=== PATIENT | female | born 1950 ===

== ENCOUNTER 2016-11-18 13:56 | Inpatient (IN) | payer OTHER ==
[2016-11-18 15:23] VITALS: BMI 23.6
[2016-11-19] MEDS: Insulin Lispro (humaLOG) 100 Units/ml Inj SC SCH ×4 (06:50→21:38)
[2016-11-19 07:25] LABS: HEMATOCRIT 34.5 % (34.0-47.0); MEAN CELL VOLUME 81.1 fl (81.0-99.0); MEAN CORPUSCULAR HGB CONC 33.3 g/dL (33.0-37.0); RED CELL DISTRIBUTION WIDTH 14.2 % (11.5-14.5)
[2016-11-19 07:45] LABS: CALCIUM 9.3 mg/dL (8.4-10.2); POTASSIUM 4.3 MMOL/L (3.6-5.0)
[2016-11-19] MEDS: Enoxaparin 40 mg Syringe SC SCH (08:31)
--- NOTE | 2016-11-19 12:35 | CP.PCM.HP ---
<Denise Chong - Last Filed: 11/19/16 12:26> History of Present Illness - History of Present Illness History of Present Illness: 66 y/o F with PMHx of HTN, Hyperlipidemia, Stroke ( as per patient was in 2002 in [place]), and recent Ischemic CVA who was transferred yesterday from [facility] to [facility] acute rehabilitation unit by Dr. Chahal for evaluation and rehabilitation. Patient seen and examined with attending this morning. Case discussed with Dr. Falk and agrees with the plan Patient denies chest pain, SOB, N/V, headaches, dizziness, but with right inferior facial and right sided weakness. Present on Admission - Present on Admission Any Indicators Present on Admission: No History of DVT/PE: No History of Uncontrolled Diabetes: No Urinary Catheter: No Decubitus Ulcer Present: No Review of Systems - Review of Systems All systems: reviewed and no additional remarkable complaints except (as per HPI ) Past Patient History - Past Medical History & Family History Past Medical History?: Yes - Past Social History Smoking Status: Never Smoked - CARDIAC Hx Hypercholesterolemia: Yes Hx Hypertension: Yes - NEUROLOGICAL HX Cerebrovascular Accident: Yes (h/o 2 CVA's with residual right side weakness) Other/Comment: h/o CVA 2002 - HEENT Hx HEENT Problems: Yes Other/Comment: RT EYE PROSTHESIS - ENDOCRINE/METABOLIC Hx Endocrine Disorders: Yes Hx Diabetes Mellitus Type 2: Yes - HEMATOLOGICAL/ONCOLOGICAL Hx AIDS: No Hx Blood Transfusions: No Hx Human Immunodeficiency Virus (HIV): No - MUSCULOSKELETAL/RHEUMATOLOGICAL Hx Falls: No - GASTROINTESTINAL Hx Constipation: Yes - PSYCHIATRIC Hx Substance Use: No - SURGICAL HISTORY Hx Surgeries: Yes Other/Comment: RT EYE SX, with right eye prosthesis - ANESTHESIA Hx Anesthesia: Yes Hx Anesthesia Reactions: No Hx Malignant Hyperthermia: No Has any member of the family had a problem w/ anesthesia?: No Meds Allergies/Adverse Reactions: Allergies Allergy/AdvReac Type Severity Reaction Status Date / Time No Known Allergies Allergy Verified 11/18/16 21:00 Physical Exam - Constitutional Appears: No Acute Distress - ENT Exam ENT Exam: Mucous Membranes Moist - Respiratory Exam Respiratory Exam: Clear to Auscultation Bilateral, NORMAL BREATHING PATTERN - Cardiovascular Exam Cardiovascular Exam: REGULAR RHYTHM, +S1, +S2 - GI/Abdominal Exam GI & Abdominal Exam: Normal Bowel Sounds, Soft. absent: Distended, Firm, Guarding, Tenderness - Extremities Exam Extremities exam: Positive for: normal inspection. Negative for: calf tenderness, pedal edema - Neurological Exam Neurological exam: Alert, Motor Sensory Deficit (decreased strength 4/5 on right upper/lower extremities. Tongue deviation to the right. ), Oriented x3 Additional comments: inferior right facial palsy noted Results - Vital Signs Recent Vital Signs: Last Vital Signs Temp 97.9 F 11/19/16 09:55 Pulse 72 11/19/16 11:14 Resp 20 11/19/16 09:55 BP 153/59 H 11/19/16 08:31 Pulse Ox 97 11/18/16 22:53 - Labs Result Diagrams: 11/19/16 06:20 11/19/16 06:20 Labs: Laboratory Results - last 24 hr 11/18/16 11/19/16 11/19/16 22:27 05:37 06:20 WBC 11.0 H RBC 4.25 Hgb 11.5 L Hct 34.5 MCV 81.1 MCH 27.0 MCHC 33.3 RDW 14.2 Plt Count 341 Sodium Potassium Chloride Carbon Dioxide Anion Gap BUN Creatinine Est GFR ( Amer) Est GFR (Non-Af Amer) POC Glucose (mg/dL) 206 H 156 H Random Glucose Calcium 11/19/16 11/19/16 06:20 11:49 WBC RBC Hgb Hct MCV MCH MCHC RDW Plt Count Sodium 139 Potassium 4.3 Chloride 102 Carbon Dioxide 25 Anion Gap 17 BUN 20 H Creatinine 1.4 H Est GFR ( Amer) 45 Est GFR (Non-Af Amer) 38 POC Glucose (mg/dL) 254 H Random Glucose 139 H Calcium 9.3 Assessment & Plan - Assessment and Plan (Free Text) Assessment: Ischemic CVA -admit to acute rehabilitation -c/w aspirin and clopidogrel PO daily -c/w atorvastatin PO PT/OT evaluation and treatment aspiration precautions fall precautions HTN c/w current meds DM type 2 f/u HgbA1C c/w accucheck consider dose adjustment for better BSL control Hyperlipidemia c/w atorvastatin DVT prophylaxis c/w lovenox SC - Date & Time Date: 11/19/16 Time: 10:00 <Stevie Falk - Last Filed: 11/22/16 11:40> Results - Vital Signs Recent Vital Signs: Last Vital Signs Temp 98.1 F 11/22/16 08:00 Pulse 61 11/22/16 08:05 Resp 20 11/22/16 08:00 BP 158/68 H 11/22/16 08:05 Pulse Ox 97 11/22/16 08:00 - Labs Result Diagrams: 11/22/16 06:56 11/19/16 06:20 Labs: Laboratory Results - last 24 hr 11/21/16 11/21/16 11/22/16 16:01 21:04 05:48 WBC RBC Hgb Hct MCV MCH MCHC RDW Plt Count POC Glucose (mg/dL) 129 H 103 118 H 11/22/16 11/22/16 06:56 11:05 WBC 10.7 RBC 4.23 Hgb 11.3 L Hct 34.7 MCV 82.0 MCH 26.6 L MCHC 32.4 L RDW 14.0 Plt Count 357 POC Glucose (mg/dL) 153 H Assessment & Plan (1) CVA, old, dysarthria Status: Acute (2) Slurring of speech Status: Acute (3) Diabetes mellitus Status: Chronic Priority: Medium (4) Hyperlipidemia Status: Chronic Priority: High (5) Hypertension Status: Chronic Priority: Medium - Assessment and Plan (Free Text) Plan: I was present during evaluation and discussed with Dr Arlette ceja plans of care and tx.
--- NOTE | 2016-11-19 13:26 | CP.PCM.PN ---
Subjective - Date & Time of Evaluation Date of Evaluation: 11/19/16 Time of Evaluation: 13:00 - Subjective Subjective: no acute complaints at present Objective - Vital Signs/Intake and Output Vital Signs (last 24 hours): Temp Pulse Resp BP Pulse Ox 97.9 F 72 20 153/59 H 97 11/19/16 09:55 11/19/16 11:14 11/19/16 09:55 11/19/16 08:31 11/18/16 22:53 - Medications Medications: Current Medications Amlodipine Besylate (Norvasc) 10 mg PO DAILY [facility] Last Admin: 11/19/16 08:31 Dose: 10 mg Aspirin (Ecotrin) 81 mg PO DAILY [facility] Last Admin: 11/19/16 08:31 Dose: 81 mg Atorvastatin Calcium (Lipitor) 40 mg PO HS [facility] Bisacodyl (Dulcolax) 10 mg [place] DAILY PRN PRN Reason: Constipation Clopidogrel Bisulfate (Plavix) 75 mg PO DAILY [facility] Last Admin: 11/19/16 08:31 Dose: 75 mg Docusate Sodium (Colace) 100 mg PO BID [facility] Last Admin: 11/19/16 08:31 Dose: 100 mg Enoxaparin Sodium (Lovenox) 40 mg [place] DAILY [facility] PRN Reason: Protocol Last Admin: 11/19/16 08:31 Dose: 40 mg Glipizide (Glucotrol Xl) 5 mg PO BRK [facility] Insulin Detemir (Levemir) 12 units SC HS [facility] Insulin Human Lispro (Humalog) 0 units [place] ACHS [facility] PRN Reason: Protocol Last Admin: 11/19/16 12:46 Dose: 3 units Losartan Potassium (Cozaar) 50 mg PO DAILY [facility] Last Admin: 11/19/16 08:29 Dose: 50 mg Metformin HCl (Glucophage) 500 mg PO BID [facility] Sitagliptin Phosphate (Januvia) 50 mg PO DAILY [facility] - Labs Labs: 11/19/16 06:20 11/19/16 06:20 - Head Exam Head Exam: ATRAUMATIC, NORMAL INSPECTION, NORMOCEPHALIC - Eye Exam Eye Exam: EOMI, Normal appearance, PERRL Pupil Exam: NORMAL ACCOMODATION - ENT Exam ENT Exam: Mucous Membranes Moist, Normal Exam - Respiratory Exam Respiratory Exam: NORMAL BREATHING PATTERN - Cardiovascular Exam Cardiovascular Exam: REGULAR RHYTHM - GI/Abdominal Exam GI & Abdominal Exam: Soft, Normal Bowel Sounds - Exam External exam: NORMAL EXTERNAL EXAM - Extremities Exam Extremities Exam: Normal Capillary Refill - Back Exam Back Exam: NORMAL INSPECTION - Neurological Exam Neurological Exam: Alert, Awake Neuro motor strength exam: Left Upper Extremity: 3, Right Upper Extremity: 3, Left Lower Extremity: 3, Right Lower Extremity: 3 - Psychiatric Exam Psychiatric exam: Normal Affect, Normal Mood - Skin Skin Exam: Dry, Intact Assessment and Plan (1) CVA, old, dysarthria Assessment & Plan: plan for pt, ot , rec and speech for oerall plan of care Status: Acute (2) Contusion Status: Acute (3) Ischemic stroke Status: Acute (4) Slurring of speech Status: Acute (5) Toothache Status: Acute (6) Diabetes mellitus Status: Chronic (7) Hyperlipidemia Status: Chronic (8) Hypertension Status: Chronic Physiatry Overall Plan of Care - Overall Plan of Care Estimated Length of Stay in Weeks: 2 Rehab Impairment: Mobility, Gait, Cognition, Speech, Balance, Coordination Etiologic Diagnosis: Cerebrovascular Accident - Anticipated Interventions Physical Therapy:: Yes Occupational Therapy:: Yes Speech Therapy:: Yes Recreational Therapy:: Yes Other Anticipated Intervention:: Yes - Therapy Goals Bed Mobility: Independent Ambulation: Independent Functional Positional Changes:: Independent - Discharge Plan Discharge Destination: Home
--- NOTE | 2016-11-19 21:18 | CON ---
DATE: PHYSIATRY CONSULTATION HISTORY OF PRESENT ILLNESS: The patient is at [facility]. A 66-year-old female, in no acute distress, admitted with acute CVA, ICD code of 01.9 with other history of hypertension, diabetes, dysarthria, dysphagia, and right eye prosthesis. ALLERGIES: NO KNOWN ALLERGIES. SOCIAL HISTORY: No history of drinking. No history of smoking. FAMILY HISTORY: Noncontributory. FUNCTIONAL STATUS: The patient was independent previously with a cane needed, some assistance provided with home health aide. MEDICATIONS: As per medical physician. REVIEW OF SYSTEMS: The patient is alert, no acute complaints at present. Mild weakness on the right side. PHYSICAL EXAMINATION: VITAL SIGNS: Stable. NECK: Supple. CHEST: Symmetrical. HEART: Sounds S1 and S2. ABDOMEN: Benign. EXTREMITIES: No clubbing, cyanosis or edema. Right upper and right lower extremity; Tone normal range of motion as functional. Muscle strength is 3/5. Left upper and left lower extremity. Tone normal range of motion as functional. Muscle strength is good. Sensation to pinprick, light touch intact. Deep tendon reflexes 2+ bilaterally, other systems are negative. NEUROLOGICAL: The patient is alert, able to follow commands. Cranial nerves being assess IX and X; otherwise the rest of the cranial nerves II and XII grossly intact. IMPRESSION: For the patient acute ischemic cerebrovascular accident, ICD code of 01.9, history of hypertension, diabetes, dysarthria, dysphagia, and right eye prosthesis. PLAN: For physical therapy, occupational therapy, recreational therapy, speech therapy. Goals are for modified independence to supervision. Estimated length of stay for this patient is 2 to 3 weeks. Anticipate a discharge plan is go back to live at home with supportive services, treatment plan for PT and OT, recreational and speech. Also write for overall plan of care. Oliver Bhatti MD
[2016-11-19] MEDS: Insulin Detemir 100 Units/ml Inj SC SCH (21:37)
[2016-11-19] MEDS ORDERED: INSULIN GLARGINE RECOMBINA SC SCH (22:00)
[2016-11-20] MEDS: Insulin Lispro (humaLOG) 100 Units/ml Inj SC SCH ×4 (07:06→21:11)
[2016-11-20] MEDS: GlipiZIDE 5 mg SR Tab PO SCH (09:00)
[2016-11-20] MEDS: Enoxaparin 40 mg Syringe SC SCH (09:11)
--- NOTE | 2016-11-20 12:10 | PSY.TMCNF ---
Nursing - Vital Signs Vital Signs (Last 8 hours): Vital Signs 11/20/16 11/20/16 11/20/16 08:24 09:00 09:12 Temperature 97.6 F Pulse Rate 75 75 Respiratory 20 20 Rate Blood Pressure 173/75 H 173/75 H 173/75 H Pain: 0 - Precautions: Precautions: Fall Prevention - Medications/Other Issues Comment: To follow as per nutrition protocol - Consults Comment: Dr. Bhatti - Toileting Toileting: Dependent - Bladder Management Bladder Pattern: Normal Voiding Method: Toilet, Bedpan Bladder Management: Maximal Assistance Frequency of Accidents: 0 - Bowel Management Bowel Pattern: Constipated Bowel Management: Dependent Frequency of Accidents: 0 - Transfers Transfers: Minimal Assistance - ADL's ADL's: Maximal Assistance - Patient/Family Teaching Comments: CARE POST CVA AND SAFETY PRECAUTIONS - Goals/Time Frame Comments: Pt was seen awake and alert sitting in her wheelchair in her room. Pt agreeable to visit. [employer] translation utilized, Alejandra #[id number]. Pt was able to identify her leisure interests such as watching movies, going outside, shopping, and watching television. Pt reported her leisure activities are limited 2' visual deficits in R eye as pt has a R eye prosthesis. Pt reports she lives with her granddaughter and is on disability. Pt agreeable to participate in recreation therapy sessions throughout stay. - Provider Provider: MAYA VERDUZCON RN CRRN Physical Therapy - Bed Mobility Bed Mobility: Minimal Assistance - Transfers Wheelchair to Mat: Verbal Cues, Minimal Assistance Sit to Stand: Verbal Cues, Minimal Assistance - Ambulation Level of Assistance: Verbal Cues, Minimal Assistance Distance (ft.): 50 Assistive Devices: Rolling Walker - Stair Negotiation Stairs: Level of Assistance: Verbal Cues, Minimal Assistance Number of Stairs: 3 Handrails: Bilateral Stairs: Assistive Devices: Left Handrail, Right Handrail - Standing Balance Static Stand: Contact Guard Assist Dynamic Stand: Minimal Assistance, Moderate Assistance - Pain Pain (assessed during therapy session): 0 - Insight/Carryover Insight/Carryover: Good - Patient/Family Education Comment: Pt education for increased safety awareness and proper technique during functonal mobility training - Assessment/Plan Assessment: Pt was oriented to the benefits of participating in recreation therapy sessions throughout stay on unit. Pt expressed interest in participating in sessions. Pt will benefit from recreation therapy to improve leisure awareness level, attention to task, and direction following. - Goals Goals: Transfers with CGA. LB dressing with CGA. Bathing with Jerome - Provider License Number: [id number] Occupational Therapy - Arousal/Attention/Orientation Patient Orientation: Person, Place, Time, Appropriate to Age, Appropriate to Situation - ADL/IADL Self Feeding: Supervision, Set-up Help Grooming: Supervision, Verbal Cues, Set-up Help Dressing-Upper Extremity: Supervision, Verbal Cues, Set-up Help Dressing-Lower Extremity: Minimal Assistance - Sitting Balance Static Sitting: Supervision Dynamic Sitting: Requires supervision - Transfers Wheelchair to Bed Transfers: Minimal Assistance Toilet Transfers: Minimal Assistance - Wheelchair Management Level of Assistance: Not Applicable - Pain Pain (assessed during therapy session): 0 - Insight/Carryover Insight/Carryover: Good - Patient/Family Education Comment: Pt education for increased safety awareness and proper technique during functonal mobility training - Assessment/Plan Assessment: Pt was oriented to the benefits of participating in recreation therapy sessions throughout stay on unit. Pt expressed interest in participating in sessions. Pt will benefit from recreation therapy to improve leisure awareness level, attention to task, and direction following. - Goals Goals: Transfers with CGA. LB dressing with CGA. Bathing with Jerome - Provider Therapist: Zahida CADENA/[facility] Speech [facility] - Consult Information Patient on Program: Yes Medical Diagnosis: acute ischemic CVA Treatment Diagnosis: cognitive-linguistic disorder, dysarthria, dysphagia - Assessment Problem Solving Impairment: Moderate Memory Impairment: Mild Speech/Articulation Impairment: Mild Dysphagia/Swallowing Impairment: Moderate - Plan Assessment: Pt was oriented to the benefits of participating in recreation therapy sessions throughout stay on unit. Pt expressed interest in participating in sessions. Pt will benefit from recreation therapy to improve leisure awareness level, attention to task, and direction following. - Provider Therapist: Eleanor Tipton License Number: [id number] Recreational Therapy - Participation Participation: Participates in Individual and/or Group Sessions, Monitors His/ Her Own Leisure Time - Attendance Attendance: Daily - Activities Leisure Activities: Television - Socialization Level of Socialization: Initiates/interacts freely with care givers and peer, Minimal initiation of interaction to request basic needs, Minimal or no response - Assessment Assessment/Plan: Pt was oriented to the benefits of participating in recreation therapy sessions throughout stay on unit. Pt expressed interest in participating in sessions. Pt will benefit from recreation therapy to improve leisure awareness level, attention to task, and direction following. Problems Currently Limiting Participation: R side weakness, decrease leisure awareness level, R eye visual deficits Goals and Time Frame: Pt will be encouraged to participate on 1:1 and group recreation therapy sessions to improve leisure awareness level, attention to task, and direction following. - Provider Therapist: Kriss Prakash, MAINTENANCE CUSTODIAN #[id number] Nutrition - Current Diet Current Diet/ Supplement/ Feedings: Moderate consistent CHO 2 gram Na advanced bite size nectar thick liquid. diet - Appetite Percent Meal Consumed: 50-74% - Comments Comments: CARE POST CVA AND SAFETY PRECAUTIONS - Assessment/Goals/Time Frame Assessment/Goals/Time Frame: To follow as per nutrition protocol - Provider Provider: Lilliana Hilliard RD Case Management - Discharge Plan Discharge Plan: Home with significant other/family Rehabilitation Plan - Treatment Plan Treatment Plan: Physical Therapy, Occupational Therapy, Speech, Dietary, Patient /Family Education - Recommendation Recommendation: Physical Therapy, Occupational Therapy, Speech, Patient/Family Education - Discharge Plan Discharge to: Home
--- NOTE | 2016-11-20 15:05 | CP.PCM.PN ---
Subjective - Date & Time of Evaluation Date of Evaluation: 11/20/16 Time of Evaluation: 14:00 - Subjective Subjective: no acute neck or back pain Objective - Vital Signs/Intake and Output Vital Signs (last 24 hours): Temp Pulse Resp BP Pulse Ox 97.6 F 75 20 173/75 H 100 11/20/16 09:00 11/20/16 09:00 11/20/16 09:00 11/20/16 09:12 11/19/16 20:50 - Medications Medications: Current Medications Amlodipine Besylate (Norvasc) 10 mg PO DAILY [facility] Last Admin: 11/20/16 09:12 Dose: 10 mg Aspirin (Ecotrin) 81 mg PO DAILY [facility] Last Admin: 11/20/16 09:11 Dose: 81 mg Atorvastatin Calcium (Lipitor) 40 mg PO HS [facility] Last Admin: 11/19/16 21:37 Dose: 40 mg Bisacodyl (Dulcolax) 10 mg [place] DAILY PRN PRN Reason: Constipation Last Admin: 11/19/16 17:30 Dose: 10 mg Clopidogrel Bisulfate (Plavix) 75 mg PO DAILY [facility] Last Admin: 11/20/16 09:11 Dose: 75 mg Docusate Sodium (Colace) 100 mg PO BID [facility] Last Admin: 11/20/16 09:11 Dose: 100 mg Enoxaparin Sodium (Lovenox) 40 mg SC DAILY [facility] PRN Reason: Protocol Last Admin: 11/20/16 09:11 Dose: 40 mg Glipizide (Glucotrol Xl) 5 mg PO BRK [facility] Last Admin: 11/20/16 09:00 Dose: 5 mg Insulin Detemir (Levemir) 12 units SC HS [facility] Last Admin: 11/19/16 21:37 Dose: 12 units Insulin Human Lispro (Humalog) 0 units SC ACHS [facility] PRN Reason: Protocol Last Admin: 11/20/16 12:22 Dose: 1 units Losartan Potassium (Cozaar) 50 mg PO DAILY [facility] Last Admin: 11/20/16 09:12 Dose: 50 mg Metformin HCl (Glucophage) 500 mg PO BID [facility] Last Admin: 11/20/16 09:11 Dose: 500 mg Sitagliptin Phosphate (Januvia) 50 mg PO DAILY [facility] Last Admin: 11/20/16 09:11 Dose: 50 mg - Labs Labs: 11/19/16 06:20 11/19/16 06:20 - Head Exam Head Exam: ATRAUMATIC - Eye Exam Eye Exam: EOMI, Normal appearance, PERRL Pupil Exam: NORMAL ACCOMODATION - ENT Exam ENT Exam: Mucous Membranes Moist, Normal Exam - Neck Exam Neck Exam: Normal Inspection - Respiratory Exam Respiratory Exam: NORMAL BREATHING PATTERN - Cardiovascular Exam Cardiovascular Exam: REGULAR RHYTHM - GI/Abdominal Exam GI & Abdominal Exam: Soft, Normal Bowel Sounds - Rectal Exam Rectal Exam: NORMAL INSPECTION - Exam External exam: NORMAL EXTERNAL EXAM - Extremities Exam Extremities Exam: Normal Capillary Refill - Back Exam Back Exam: NORMAL INSPECTION - Neurological Exam Neurological Exam: Alert, Awake Neuro motor strength exam: Left Upper Extremity: 3, Right Upper Extremity: 3, Left Lower Extremity: 3, Right Lower Extremity: 3 - Psychiatric Exam Psychiatric exam: Normal Affect, Normal Mood - Skin Skin Exam: Dry, Intact Assessment and Plan (1) CVA, old, dysarthria Assessment & Plan: plan for pt ot rec and speech therapy discussed Dc planning status post team conference Status: Acute (2) Contusion Status: Acute (3) Ischemic stroke Status: Acute (4) Slurring of speech Status: Acute (5) Toothache Status: Acute (6) Diabetes mellitus Status: Chronic (7) Hyperlipidemia Status: Chronic (8) Hypertension Status: Chronic
[2016-11-20] MEDS: Insulin Detemir 100 Units/ml Inj SC SCH (21:10)
[2016-11-21] MEDS: Insulin Lispro (humaLOG) 100 Units/ml Inj SC SCH ×4 (06:44→21:11)
[2016-11-21] MEDS: GlipiZIDE 5 mg SR Tab PO SCH (09:10)
[2016-11-21] MEDS: Enoxaparin 40 mg Syringe SC SCH (09:11)
--- NOTE | 2016-11-21 13:51 | CP.PCM.PN ---
Subjective - Date & Time of Evaluation Date of Evaluation: 11/21/16 Time of Evaluation: 10:30 - Subjective Subjective: no acute complaints at present Objective - Vital Signs/Intake and Output Vital Signs (last 24 hours): Temp Pulse Resp BP Pulse Ox 97.5 F L 78 19 133/72 97 11/21/16 08:21 11/21/16 09:12 11/21/16 08:21 11/21/16 09:12 11/21/16 08:21 - Medications Medications: Current Medications Amlodipine Besylate (Norvasc) 10 mg PO DAILY [facility] Last Admin: 11/21/16 09:11 Dose: 10 mg Aspirin (Ecotrin) 81 mg PO DAILY [facility] Last Admin: 11/21/16 09:10 Dose: 81 mg Atorvastatin Calcium (Lipitor) 40 mg PO HS [facility] Last Admin: 11/20/16 21:10 Dose: 40 mg Bisacodyl (Dulcolax) 10 mg [place] DAILY PRN PRN Reason: Constipation Last Admin: 11/19/16 17:30 Dose: 10 mg Clopidogrel Bisulfate (Plavix) 75 mg PO DAILY [facility] Last Admin: 11/21/16 09:10 Dose: 75 mg Docusate Sodium (Colace) 100 mg PO BID [facility] Last Admin: 11/21/16 09:11 Dose: 100 mg Enoxaparin Sodium (Lovenox) 40 mg [place] DAILY [facility] PRN Reason: Protocol Last Admin: 11/21/16 09:11 Dose: 40 mg Glipizide (Glucotrol Xl) 5 mg PO BRK [facility] Last Admin: 11/21/16 09:10 Dose: 5 mg Insulin Detemir (Levemir) 12 units SC HS [facility] Last Admin: 11/20/16 21:10 Dose: 12 units Insulin Human Lispro (Humalog) 0 units SC ACHS [facility] PRN Reason: Protocol Last Admin: 11/21/16 12:29 Dose: Not Given Losartan Potassium (Cozaar) 50 mg PO DAILY [facility] Last Admin: 11/21/16 09:12 Dose: 50 mg Metformin HCl (Glucophage) 500 mg PO BID [facility] Last Admin: 11/21/16 09:10 Dose: 500 mg Nystatin (Nystatin Oral Susp) 5 ml PO TID [facility] Sitagliptin Phosphate (Januvia) 50 mg PO DAILY [facility] Last Admin: 11/21/16 09:10 Dose: 50 mg - Labs Labs: 11/19/16 06:20 11/19/16 06:20 - Head Exam Head Exam: ATRAUMATIC, NORMAL INSPECTION, NORMOCEPHALIC - Eye Exam Eye Exam: EOMI, Normal appearance, PERRL Pupil Exam: NORMAL ACCOMODATION - ENT Exam ENT Exam: Mucous Membranes Moist, Normal Exam - Neck Exam Neck Exam: Normal Inspection - Respiratory Exam Respiratory Exam: NORMAL BREATHING PATTERN - Cardiovascular Exam Cardiovascular Exam: REGULAR RHYTHM - GI/Abdominal Exam GI & Abdominal Exam: Soft, Normal Bowel Sounds - Rectal Exam Rectal Exam: NORMAL INSPECTION - Exam External exam: NORMAL EXTERNAL EXAM - Extremities Exam Extremities Exam: Normal Capillary Refill - Back Exam Back Exam: NORMAL INSPECTION - Neurological Exam Neurological Exam: Alert, Awake Neuro motor strength exam: Left Upper Extremity: 3, Right Upper Extremity: 3, Left Lower Extremity: 3, Right Lower Extremity: 3 - Psychiatric Exam Psychiatric exam: Normal Affect, Normal Mood - Skin Skin Exam: Dry, Intact Assessment and Plan (1) CVA, old, dysarthria Assessment & Plan: plan for Pt, Ot rec rom, strenghtening, transfers, gait training Status: Acute (2) Contusion Status: Acute (3) Ischemic stroke Status: Acute (4) Slurring of speech Status: Acute (5) Toothache Status: Acute (6) Diabetes mellitus Status: Chronic (7) Hyperlipidemia Status: Chronic (8) Hypertension Status: Chronic
[2016-11-21] MEDS: Nystatin 100,000 Units/ml Oral Susp 5 ml UD PO SCH ×2 (14:00→17:01)
[2016-11-21] MEDS: Insulin Detemir 100 Units/ml Inj SC SCH (21:11)
[2016-11-22] MEDS: Insulin Lispro (humaLOG) 100 Units/ml Inj SC SCH ×4 (06:51→21:28)
[2016-11-22 07:12] LABS: HEMATOCRIT 34.7 % (34.0-47.0); MEAN CORPUSCULAR HEMOGLOBIN 26.6 pg (27.0-31.0); MEAN CORPUSCULAR HGB CONC 32.4 g/dL (33.0-37.0); WHITE BLOOD COUNT 10.7 K/uL (4.8-10.8)
[2016-11-22] MEDS: GlipiZIDE 5 mg SR Tab PO SCH (08:04)
[2016-11-22] MEDS: Enoxaparin 40 mg Syringe SC SCH (08:05)
[2016-11-22] MEDS: Nystatin 100,000 Units/ml Oral Susp 5 ml UD PO SCH ×3 (08:06→16:07)
--- NOTE | 2016-11-22 11:29 | CP.PCM.PN ---
Subjective - Date & Time of Evaluation Date of Evaluation: 11/20/16 Time of Evaluation: 10:00 - Subjective Subjective: Patient is doing a lot better Still with problems with swallowing Claims that she has a lot of pain on the right side of the throat when swallowing. Has no chest pain or SOB Has no fever. Objective - Vital Signs/Intake and Output Vital Signs (last 24 hours): Temp Pulse Resp BP Pulse Ox 98.1 F 61 20 158/68 H 97 11/22/16 08:00 11/22/16 08:05 11/22/16 08:00 11/22/16 08:05 11/22/16 08:00 - Medications Medications: Current Medications Amlodipine Besylate (Norvasc) 10 mg PO DAILY [facility] Last Admin: 11/22/16 08:05 Dose: 10 mg Aspirin (Ecotrin) 81 mg PO DAILY [facility] Last Admin: 11/22/16 08:04 Dose: 81 mg Atorvastatin Calcium (Lipitor) 40 mg PO [facility] Last Admin: 11/21/16 21:10 Dose: 40 mg Bisacodyl (Dulcolax) 10 mg [place] DAILY PRN PRN Reason: Constipation Last Admin: 11/19/16 17:30 Dose: 10 mg Clopidogrel Bisulfate (Plavix) 75 mg PO DAILY [facility] Last Admin: 11/22/16 08:06 Dose: 75 mg Docusate Sodium (Colace) 100 mg PO BID [facility] Last Admin: 11/22/16 08:02 Dose: 100 mg Glipizide (Glucotrol Xl) 5 mg PO BRK [facility] Last Admin: 11/22/16 08:04 Dose: 5 mg Insulin Detemir (Levemir) 12 units SC HS [facility] Last Admin: 11/21/16 21:11 Dose: 12 units Insulin Human Lispro (Humalog) 0 units SC [facility] PRN Reason: Protocol Last Admin: 11/22/16 06:51 Dose: Not Given Losartan Potassium (Cozaar) 50 mg PO DAILY [facility] Last Admin: 11/22/16 08:03 Dose: 50 mg Metformin HCl (Glucophage) 500 mg PO BID [facility] Last Admin: 11/22/16 08:04 Dose: 500 mg Nystatin (Nystatin Oral Susp) 5 ml PO TID [facility] Last Admin: 11/22/16 08:06 Dose: 5 ml Sitagliptin Phosphate (Januvia) 50 mg PO DAILY [facility] Last Admin: 11/22/16 08:05 Dose: 50 mg - Labs Labs: 11/22/16 06:56 11/19/16 06:20 - Head Exam Head Exam: NORMAL INSPECTION - ENT Exam ENT Exam: Mucous Membranes Moist - Respiratory Exam Respiratory Exam: Clear to Ausculation Bilateral - Cardiovascular Exam Cardiovascular Exam: REGULAR RHYTHM - Neurological Exam Neurological Exam: Awake, Oriented x3 - Psychiatric Exam Psychiatric exam: Normal Mood Assessment and Plan (1) CVA, old, dysarthria Status: Acute (2) Slurring of speech Status: Acute (3) Diabetes mellitus Status: Chronic (4) Hyperlipidemia Status: Chronic (5) Hypertension Status: Chronic - Assessment and Plan (Free Text) Plan: Cont meds Cont tx Cont PT pain meds follow up with speech tx.
--- NOTE | 2016-11-22 11:33 | CP.PCM.PN ---
Subjective - Date & Time of Evaluation Date of Evaluation: 11/20/16 Time of Evaluation: 09:40 - Subjective Subjective: Patient is doing well Has no chest pain or SOB. Afebrile Has no fever. Doing well with PT. Objective - Vital Signs/Intake and Output Vital Signs (last 24 hours): Temp Pulse Resp BP Pulse Ox 98.1 F 61 20 158/68 H 97 11/22/16 08:00 11/22/16 08:05 11/22/16 08:00 11/22/16 08:05 11/22/16 08:00 - Medications Medications: Current Medications Amlodipine Besylate (Norvasc) 10 mg PO DAILY [facility] Last Admin: 11/22/16 08:05 Dose: 10 mg Aspirin (Ecotrin) 81 mg PO DAILY [facility] Last Admin: 11/22/16 08:04 Dose: 81 mg Atorvastatin Calcium (Lipitor) 40 mg PO HS [facility] Last Admin: 11/21/16 21:10 Dose: 40 mg Bisacodyl (Dulcolax) 10 mg [place] DAILY PRN PRN Reason: Constipation Last Admin: 11/19/16 17:30 Dose: 10 mg Clopidogrel Bisulfate (Plavix) 75 mg PO DAILY [facility] Last Admin: 11/22/16 08:06 Dose: 75 mg Docusate Sodium (Colace) 100 mg PO BID [facility] Last Admin: 11/22/16 08:02 Dose: 100 mg Glipizide (Glucotrol Xl) 5 mg PO BRK [facility] Last Admin: 11/22/16 08:04 Dose: 5 mg Insulin Detemir (Levemir) 12 units SC HS [facility] Last Admin: 11/21/16 21:11 Dose: 12 units Insulin Human Lispro (Humalog) 0 units SC [facility] PRN Reason: Protocol Last Admin: 11/22/16 06:51 Dose: Not Given Losartan Potassium (Cozaar) 50 mg PO DAILY [facility] Last Admin: 11/22/16 08:03 Dose: 50 mg Metformin HCl (Glucophage) 500 mg PO BID [facility] Last Admin: 11/22/16 08:04 Dose: 500 mg Nystatin (Nystatin Oral Susp) 5 ml PO TID [facility] Last Admin: 11/22/16 08:06 Dose: 5 ml Sitagliptin Phosphate (Januvia) 50 mg PO DAILY [facility] Last Admin: 11/22/16 08:05 Dose: 50 mg - Labs Labs: 11/22/16 06:56 11/19/16 06:20 - Head Exam Head Exam: NORMAL INSPECTION - Eye Exam Eye Exam: Normal appearance - ENT Exam ENT Exam: Mucous Membranes Moist - Respiratory Exam Respiratory Exam: Clear to Ausculation Bilateral - Cardiovascular Exam Cardiovascular Exam: REGULAR RHYTHM - GI/Abdominal Exam GI & Abdominal Exam: Normal Bowel Sounds - Neurological Exam Neurological Exam: Awake, Oriented x3 - Psychiatric Exam Psychiatric exam: Normal Mood Assessment and Plan (1) CVA, old, dysarthria Status: Acute (2) Slurring of speech Status: Acute (3) Diabetes mellitus Status: Chronic (4) Hyperlipidemia Status: Chronic (5) Hypertension Status: Chronic - Assessment and Plan (Free Text) Plan: Cont meds Cont tx Cont PT pain meds.
--- NOTE | 2016-11-22 11:35 | CP.PCM.PN ---
Subjective - Date & Time of Evaluation Date of Evaluation: 11/21/16 Time of Evaluation: 10:45 - Subjective Subjective: Patient remains stable Has no chest pain or SOB Afebrile. Objective - Vital Signs/Intake and Output Vital Signs (last 24 hours): Temp Pulse Resp BP Pulse Ox 98.1 F 61 20 158/68 H 97 11/22/16 08:00 11/22/16 08:05 11/22/16 08:00 11/22/16 08:05 11/22/16 08:00 - Medications Medications: Current Medications Amlodipine Besylate (Norvasc) 10 mg PO DAILY [facility] Last Admin: 11/22/16 08:05 Dose: 10 mg Aspirin (Ecotrin) 81 mg PO DAILY [facility] Last Admin: 11/22/16 08:04 Dose: 81 mg Atorvastatin Calcium (Lipitor) 40 mg PO HS [facility] Last Admin: 11/21/16 21:10 Dose: 40 mg Bisacodyl (Dulcolax) 10 mg [place] DAILY PRN PRN Reason: Constipation Last Admin: 11/19/16 17:30 Dose: 10 mg Clopidogrel Bisulfate (Plavix) 75 mg PO DAILY [facility] Last Admin: 11/22/16 08:06 Dose: 75 mg Docusate Sodium (Colace) 100 mg PO BID [facility] Last Admin: 11/22/16 08:02 Dose: 100 mg Glipizide (Glucotrol Xl) 5 mg PO BRK [facility] Last Admin: 11/22/16 08:04 Dose: 5 mg Insulin Detemir (Levemir) 12 units SC HS [facility] Last Admin: 11/21/16 21:11 Dose: 12 units Insulin Human Lispro (Humalog) 0 units SC [facility] PRN Reason: Protocol Last Admin: 11/22/16 06:51 Dose: Not Given Losartan Potassium (Cozaar) 50 mg PO DAILY [facility] Last Admin: 11/22/16 08:03 Dose: 50 mg Metformin HCl (Glucophage) 500 mg PO BID [facility] Last Admin: 11/22/16 08:04 Dose: 500 mg Nystatin (Nystatin Oral Susp) 5 ml PO TID [facility] Last Admin: 11/22/16 08:06 Dose: 5 ml Sitagliptin Phosphate (Januvia) 50 mg PO DAILY [facility] Last Admin: 11/22/16 08:05 Dose: 50 mg - Labs Labs: 11/22/16 06:56 11/19/16 06:20 - Head Exam Head Exam: NORMAL INSPECTION - Eye Exam Eye Exam: Normal appearance - ENT Exam ENT Exam: Mucous Membranes Moist - Respiratory Exam Respiratory Exam: Clear to Ausculation Bilateral - Cardiovascular Exam Cardiovascular Exam: REGULAR RHYTHM - GI/Abdominal Exam GI & Abdominal Exam: Normal Bowel Sounds - Neurological Exam Neurological Exam: Awake, Oriented x3 Assessment and Plan (1) CVA, old, dysarthria Status: Acute (2) Slurring of speech Status: Acute (3) Diabetes mellitus Status: Chronic (4) Hyperlipidemia Status: Chronic (5) Hypertension Status: Chronic - Assessment and Plan (Free Text) Plan: Cont meds Cont tx Cont pT pain meds.
--- NOTE | 2016-11-22 11:37 | CP.PCM.PN ---
Subjective - Date & Time of Evaluation Date of Evaluation: 11/22/16 Time of Evaluation: 10:50 - Subjective Subjective: Patient remains stable Has no chest pain or SOB Has minimal pain on the right throat area. Objective - Vital Signs/Intake and Output Vital Signs (last 24 hours): Temp Pulse Resp BP Pulse Ox 98.1 F 61 20 158/68 H 97 11/22/16 08:00 11/22/16 08:05 11/22/16 08:00 11/22/16 08:05 11/22/16 08:00 - Medications Medications: Current Medications Amlodipine Besylate (Norvasc) 10 mg PO DAILY [facility] Last Admin: 11/22/16 08:05 Dose: 10 mg Aspirin (Ecotrin) 81 mg PO DAILY [facility] Last Admin: 11/22/16 08:04 Dose: 81 mg Atorvastatin Calcium (Lipitor) 40 mg PO HS [facility] Last Admin: 11/21/16 21:10 Dose: 40 mg Bisacodyl (Dulcolax) 10 mg [place] DAILY PRN PRN Reason: Constipation Last Admin: 11/19/16 17:30 Dose: 10 mg Clopidogrel Bisulfate (Plavix) 75 mg PO DAILY [facility] Last Admin: 11/22/16 08:06 Dose: 75 mg Docusate Sodium (Colace) 100 mg PO BID [facility] Last Admin: 11/22/16 08:02 Dose: 100 mg Glipizide (Glucotrol Xl) 5 mg PO BRK [facility] Last Admin: 11/22/16 08:04 Dose: 5 mg Insulin Detemir (Levemir) 12 units SC [facility] Last Admin: 11/21/16 21:11 Dose: 12 units Insulin Human Lispro (Humalog) 0 units SC [facility] PRN Reason: Protocol Last Admin: 11/22/16 06:51 Dose: Not Given Losartan Potassium (Cozaar) 50 mg PO DAILY [facility] Last Admin: 11/22/16 08:03 Dose: 50 mg Metformin HCl (Glucophage) 500 mg PO BID [facility] Last Admin: 11/22/16 08:04 Dose: 500 mg Nystatin (Nystatin Oral Susp) 5 ml PO TID [facility] Last Admin: 11/22/16 08:06 Dose: 5 ml Sitagliptin Phosphate (Januvia) 50 mg PO DAILY [facility] Last Admin: 11/22/16 08:05 Dose: 50 mg - Labs Labs: 11/22/16 06:56 11/19/16 06:20 - Head Exam Head Exam: NORMAL INSPECTION - Eye Exam Eye Exam: Normal appearance - ENT Exam ENT Exam: Mucous Membranes Moist - Respiratory Exam Respiratory Exam: Clear to Ausculation Bilateral - Cardiovascular Exam Cardiovascular Exam: REGULAR RHYTHM - GI/Abdominal Exam GI & Abdominal Exam: Normal Bowel Sounds - Neurological Exam Neurological Exam: Awake, Oriented x3 Assessment and Plan (1) CVA, old, dysarthria Status: Acute (2) Slurring of speech Status: Acute (3) Diabetes mellitus Status: Chronic (4) Hyperlipidemia Status: Chronic (5) Hypertension Status: Chronic - Assessment and Plan (Free Text) Plan: Cont meds Con ttx Cont PT Con tmeds.
[2016-11-22] MEDS: Insulin Detemir 100 Units/ml Inj SC SCH (21:27)
[2016-11-23] MEDS: Insulin Lispro (humaLOG) 100 Units/ml Inj SC SCH ×4 (08:00→21:12)
[2016-11-23] MEDS: GlipiZIDE 5 mg SR Tab PO SCH (08:00)
[2016-11-23] MEDS: Enoxaparin 40 mg Syringe SC SCH (09:00)
[2016-11-23] MEDS: Nystatin 100,000 Units/ml Oral Susp 5 ml UD PO SCH ×3 (09:00→17:29)
[2016-11-23] MEDS: Insulin Detemir 100 Units/ml Inj SC SCH (21:11)
[2016-11-24] MEDS: Insulin Lispro (humaLOG) 100 Units/ml Inj SC SCH ×4 (06:30→21:29)
[2016-11-24] MEDS: GlipiZIDE 5 mg SR Tab PO SCH (08:00)
--- NOTE | 2016-11-24 08:25 | CP.PCM.PN ---
Subjective - Date & Time of Evaluation Date of Evaluation: 11/24/16 Time of Evaluation: 08:00 - Subjective Subjective: Seen and Examined at the bed side. No new complaint. Tolerating PT/OT Objective - Vital Signs/Intake and Output Vital Signs (last 24 hours): Temp Pulse Resp BP Pulse Ox 98.1 F 67 20 148/75 97 11/23/16 21:05 11/23/16 21:05 11/23/16 21:05 11/23/16 21:05 11/23/16 21:05 - Medications Medications: Current Medications Amlodipine Besylate (Norvasc) 10 mg PO DAILY [facility] Last Admin: 11/23/16 09:37 Dose: 10 mg Aspirin (Ecotrin) 81 mg PO DAILY [facility] Last Admin: 11/23/16 09:00 Dose: 81 mg Atorvastatin Calcium (Lipitor) 40 mg PO HS [facility] Last Admin: 11/23/16 21:11 Dose: 40 mg Bisacodyl (Dulcolax) 10 mg [place] DAILY PRN PRN Reason: Constipation Last Admin: 11/22/16 22:37 Dose: 10 mg Clopidogrel Bisulfate (Plavix) 75 mg PO DAILY [facility] Last Admin: 11/23/16 09:00 Dose: 75 mg Docusate Sodium (Colace) 100 mg PO BID [facility] Last Admin: 11/23/16 17:28 Dose: 100 mg Enoxaparin Sodium (Lovenox) 40 mg [place] DAILY [facility] PRN Reason: Protocol Last Admin: 11/23/16 09:00 Dose: 40 mg Glipizide (Glucotrol Xl) 5 mg PO BRK [facility] Last Admin: 11/23/16 08:00 Dose: 5 mg Insulin Detemir (Levemir) 12 units SC [facility] Last Admin: 11/23/16 21:11 Dose: 12 units Insulin Human Lispro (Humalog) 0 units SC [facility] PRN Reason: Protocol Last Admin: 11/24/16 06:30 Dose: Not Given Losartan Potassium (Cozaar) 50 mg PO DAILY [facility] Last Admin: 11/23/16 09:35 Dose: 50 mg Metformin HCl (Glucophage) 500 mg PO BID [facility] Last Admin: 11/23/16 17:28 Dose: 500 mg Nystatin (Nystatin Oral Susp) 5 ml PO TID [facility] Last Admin: 11/23/16 17:29 Dose: 5 ml Sitagliptin Phosphate (Januvia) 50 mg PO DAILY [facility] Last Admin: 11/23/16 09:00 Dose: 50 mg - Labs Labs: 11/22/16 06:56 11/19/16 06:20 - Constitutional Appears: Well - Head Exam Head Exam: ATRAUMATIC, NORMAL INSPECTION, NORMOCEPHALIC - Eye Exam Eye Exam: EOMI, Normal appearance, PERRL Pupil Exam: NORMAL ACCOMODATION, PERRL - ENT Exam ENT Exam: Mucous Membranes Moist, Normal Exam - Neck Exam Neck Exam: Full ROM, Normal Inspection. absent: Lymphadenopathy - Respiratory Exam Respiratory Exam: Clear to Ausculation Bilateral, NORMAL BREATHING PATTERN - Cardiovascular Exam Cardiovascular Exam: REGULAR RHYTHM, +S1, +S2. absent: Murmur - GI/Abdominal Exam GI & Abdominal Exam: Soft, Normal Bowel Sounds. absent: Tenderness - Extremities Exam Extremities Exam: Full ROM, Normal Capillary Refill, Normal Inspection. absent : Joint Swelling, Pedal Edema - Back Exam Back Exam: NORMAL INSPECTION - Neurological Exam Neurological Exam: Alert, Awake, CN II-XII Intact Additional comments: Hemiparesis - Psychiatric Exam Psychiatric exam: Normal Affect, Normal Mood - Skin Skin Exam: Dry, Intact, Normal Color, Warm Assessment and Plan (1) Ischemic stroke Status: Acute (2) Diabetes mellitus Status: Chronic (3) Hyperlipidemia Status: Chronic (4) Hypertension Status: Chronic - Assessment and Plan (Free Text) Assessment: Continue Current Care PT/OT as per Physiatry Recommendation
[2016-11-24] MEDS: Nystatin 100,000 Units/ml Oral Susp 5 ml UD PO SCH ×3 (09:00→17:36)
[2016-11-24] MEDS: Enoxaparin 40 mg Syringe SC SCH (09:22)
--- NOTE | 2016-11-24 11:13 | CP.PCM.PN ---
Subjective - Date & Time of Evaluation Date of Evaluation: 11/23/16 Time of Evaluation: 09:30 - Subjective Subjective: Patient remains stable Has no chest pain or SOB Afebrile. Objective - Vital Signs/Intake and Output Vital Signs (last 24 hours): Temp Pulse Resp BP Pulse Ox 98.1 F 63 20 156/75 H 97 11/23/16 21:05 11/24/16 09:25 11/23/16 21:05 11/24/16 09:25 11/23/16 21:05 - Medications Medications: Current Medications Amlodipine Besylate (Norvasc) 10 mg PO DAILY [facility] Last Admin: 11/24/16 09:23 Dose: 10 mg Aspirin (Ecotrin) 81 mg PO DAILY [facility] Last Admin: 11/24/16 09:00 Dose: 81 mg Atorvastatin Calcium (Lipitor) [address] [facility] Last Admin: 11/23/16 21:11 Dose: 40 mg Bisacodyl (Dulcolax) 10 mg [place] DAILY PRN PRN Reason: Constipation Last Admin: 11/22/16 22:37 Dose: 10 mg Clopidogrel Bisulfate (Plavix) 75 mg PO DAILY [facility] Last Admin: 11/24/16 09:24 Dose: 75 mg Docusate Sodium (Colace) 100 mg PO BID [facility] Last Admin: 11/24/16 09:23 Dose: 100 mg Enoxaparin Sodium (Lovenox) 40 mg [place] DAILY [facility] PRN Reason: Protocol Last Admin: 11/24/16 09:22 Dose: 40 mg Insulin Detemir (Levemir) [address] [facility] Last Admin: 11/23/16 21:11 Dose: 12 units Insulin Human Lispro (Humalog) 0 units SC [facility] PRN Reason: Protocol Last Admin: 11/24/16 06:30 Dose: Not Given Losartan Potassium (Cozaar) 50 mg PO DAILY [facility] Last Admin: 11/24/16 09:25 Dose: 50 mg Metformin HCl (Glucophage) 500 mg PO BID [facility] Last Admin: 11/24/16 09:00 Dose: 500 mg Nystatin (Nystatin Oral Susp) 5 ml PO TID [facility] Last Admin: 11/24/16 09:00 Dose: 5 ml Sitagliptin Phosphate (Januvia) 50 mg PO DAILY [facility] Last Admin: 11/24/16 09:24 Dose: 50 mg - Labs Labs: 11/22/16 06:56 11/19/16 06:20 - Head Exam Head Exam: NORMAL INSPECTION - Eye Exam Eye Exam: Normal appearance - ENT Exam ENT Exam: Mucous Membranes Moist - Respiratory Exam Respiratory Exam: Clear to Ausculation Bilateral - Cardiovascular Exam Cardiovascular Exam: REGULAR RHYTHM - GI/Abdominal Exam GI & Abdominal Exam: Normal Bowel Sounds - Neurological Exam Neurological Exam: Awake, Oriented x3 Assessment and Plan (1) CVA, old, dysarthria Status: Acute (2) Slurring of speech Status: Acute (3) Diabetes mellitus Status: Chronic (4) Hyperlipidemia Status: Chronic (5) Hypertension Status: Chronic - Assessment and Plan (Free Text) Plan: Cont meds Con tPT pain meds
[2016-11-24] MEDS ORDERED: Albuterol-Ipratrop 3 mg / 0.5 (3 ml) UD INH PRN (19:35)
[2016-11-24] MEDS ORDERED: guaiFENesin DM 200 mg-20 mg/10 ml UD PO PRN (19:37)
[2016-11-24] MEDS: Insulin Detemir 100 Units/ml Inj SC SCH (21:29)
[2016-11-25] MEDS: Insulin Lispro (humaLOG) 100 Units/ml Inj SC SCH ×4 (06:31→21:15)
[2016-11-25 06:51] LABS: HEMATOCRIT 35.6 % (34.0-47.0); MEAN CELL VOLUME 81.8 fl (81.0-99.0); MEAN CORPUSCULAR HEMOGLOBIN 26.3 pg (27.0-31.0); MEAN CORPUSCULAR HGB CONC 32.2 g/dL (33.0-37.0); RED CELL DISTRIBUTION WIDTH 14.2 % (11.5-14.5); WHITE BLOOD COUNT 11.7 K/uL (4.8-10.8)
[2016-11-25 06:58] LABS: CALCIUM 9.5 mg/dL (8.4-10.2); POTASSIUM 4.8 MMOL/L (3.6-5.0)
[2016-11-25] MEDS: Enoxaparin 40 mg Syringe SC SCH (08:47)
[2016-11-25] MEDS: Nystatin 100,000 Units/ml Oral Susp 5 ml UD PO SCH ×3 (08:48→17:09)
[2016-11-25] MEDS: Insulin Detemir 100 Units/ml Inj SC SCH (21:15)
--- NOTE | 2016-11-25 23:13 | CP.PCM.PN ---
Subjective - Date & Time of Evaluation Date of Evaluation: 11/25/16 Time of Evaluation: 08:20 - Subjective Subjective: States feeling better. Objective - Vital Signs/Intake and Output Vital Signs (last 24 hours): Temp Pulse Resp BP Pulse Ox 98.4 F 74 20 150/74 97 11/25/16 20:15 11/25/16 20:15 11/25/16 20:15 11/25/16 20:15 11/25/16 20:15 - Medications Medications: Current Medications Albuterol/Ipratropium (Duoneb 3 Mg/0.5 Mg (3 Ml) Ud) 3 ml INH RQ6 PRN PRN Reason: Shortness of Breath Last Admin: 11/24/16 21:44 Dose: 3 ml Amlodipine Besylate (Norvasc) 10 mg PO DAILY [facility] Last Admin: 11/25/16 08:47 Dose: 10 mg Aspirin (Ecotrin) 81 mg PO DAILY [facility] Last Admin: 11/25/16 08:49 Dose: 81 mg Atorvastatin Calcium (Lipitor) 40 mg PO HS [facility] Last Admin: 11/25/16 21:15 Dose: 40 mg Bisacodyl (Dulcolax) 10 mg [place] DAILY PRN PRN Reason: Constipation Last Admin: 11/25/16 17:09 Dose: 10 mg Clopidogrel Bisulfate (Plavix) 75 mg PO DAILY [facility] Last Admin: 11/25/16 08:48 Dose: 75 mg Docusate Sodium (Colace) 100 mg PO BID [facility] Last Admin: 11/25/16 17:08 Dose: 100 mg Enoxaparin Sodium (Lovenox) 40 mg [place] DAILY [facility] PRN Reason: Protocol Last Admin: 11/25/16 08:47 Dose: 40 mg Famotidine (Pepcid) 20 mg PO BID [facility] Last Admin: 11/25/16 17:09 Dose: 20 mg Guaifenesin/Dextromethorphan (Robitussin Dm) 10 ml PO Q6 PRN PRN Reason: Cough Insulin Detemir (Levemir) 12 units SC HS [facility] Last Admin: 11/25/16 21:15 Dose: 12 units Insulin Human Lispro (Humalog) 0 units SC [facility] PRN Reason: Protocol Last Admin: 11/25/16 21:15 Dose: Not Given Lidocaine (Lidoderm) 1 ea TD DAILY [facility] Losartan Potassium (Cozaar) 50 mg PO DAILY [facility] Last Admin: 11/25/16 08:48 Dose: 50 mg Metformin HCl (Glucophage) 500 mg PO BID [facility] Last Admin: 11/25/16 17:09 Dose: 500 mg Nystatin (Nystatin Oral Susp) 5 ml PO TID [facility] Last Admin: 11/25/16 17:09 Dose: 5 ml Sitagliptin Phosphate (Januvia) 50 mg PO DAILY [facility] Last Admin: 11/25/16 08:49 Dose: 50 mg - Labs Labs: 11/25/16 06:10 11/25/16 06:10 - Constitutional Appears: Well - Head Exam Head Exam: ATRAUMATIC, NORMAL INSPECTION, NORMOCEPHALIC - Eye Exam Eye Exam: EOMI, Normal appearance, PERRL Pupil Exam: NORMAL ACCOMODATION, PERRL - ENT Exam ENT Exam: Mucous Membranes Moist, Normal Exam - Neck Exam Neck Exam: Full ROM, Normal Inspection. absent: Lymphadenopathy - Respiratory Exam Respiratory Exam: Clear to Ausculation Bilateral, NORMAL BREATHING PATTERN - Cardiovascular Exam Cardiovascular Exam: REGULAR RHYTHM, +S1, +S2. absent: Murmur - GI/Abdominal Exam GI & Abdominal Exam: Soft, Normal Bowel Sounds. absent: Tenderness - Extremities Exam Extremities Exam: Normal Capillary Refill. absent: Joint Swelling, Pedal Edema - Back Exam Back Exam: NORMAL INSPECTION - Neurological Exam Neurological Exam: Abnormal Gait, Alert, Awake - Psychiatric Exam Psychiatric exam: Normal Affect, Normal Mood - Skin Skin Exam: Dry, Intact, Normal Color, Warm Assessment and Plan (1) Ischemic stroke Assessment & Plan: H/O Old stroke Status: Acute (2) Contusion Status: Acute (3) Slurring of speech Status: Acute (4) Toothache Status: Acute (5) Diabetes mellitus Status: Chronic (6) Hyperlipidemia Status: Chronic (7) Hypertension Status: Chronic Continue Current care Improving Status: Acute
[2016-11-26] MEDS: Insulin Lispro (humaLOG) 100 Units/ml Inj SC SCH ×4 (06:36→22:06)
[2016-11-26] MEDS: Lidocaine 5% Patch TD SCH (08:15)
[2016-11-26] MEDS: Nystatin 100,000 Units/ml Oral Susp 5 ml UD PO SCH ×3 (08:17→17:23)
[2016-11-26] MEDS: Enoxaparin 40 mg Syringe SC SCH (08:18)
--- NOTE | 2016-11-26 11:42 | CP.PCM.PN ---
Subjective - Date & Time of Evaluation Date of Evaluation: 11/26/16 Time of Evaluation: 11:00 - Subjective Subjective: Seen and examined at the bed side. No new complaint. Objective - Vital Signs/Intake and Output Vital Signs (last 24 hours): Temp Pulse Resp BP Pulse Ox 97.8 F 70 20 134/71 97 11/26/16 08:18 11/26/16 08:18 11/26/16 08:18 11/26/16 08:18 11/25/16 20:15 - Medications Medications: Current Medications Albuterol/Ipratropium (Duoneb 3 Mg/0.5 Mg (3 Ml) Ud) 3 ml INH RQ6 PRN PRN Reason: Shortness of Breath Last Admin: 11/24/16 21:44 Dose: 3 ml Amlodipine Besylate (Norvasc) 10 mg PO DAILY [facility] Last Admin: 11/26/16 08:17 Dose: 10 mg Aspirin (Ecotrin) 81 mg PO DAILY [facility] Last Admin: 11/26/16 08:16 Dose: 81 mg Atorvastatin Calcium (Lipitor) 40 mg PO HS [facility] Last Admin: 11/25/16 21:15 Dose: 40 mg Bisacodyl (Dulcolax) 10 mg [place] DAILY PRN PRN Reason: Constipation Last Admin: 11/25/16 17:09 Dose: 10 mg Clopidogrel Bisulfate (Plavix) 75 mg PO DAILY [facility] Last Admin: 11/26/16 08:17 Dose: 75 mg Enoxaparin Sodium (Lovenox) 40 mg [place] DAILY [facility] PRN Reason: Protocol Last Admin: 11/26/16 08:18 Dose: 40 mg Famotidine (Pepcid) 20 mg PO BID [facility] Last Admin: 11/26/16 08:16 Dose: 20 mg Guaifenesin/Dextromethorphan (Robitussin Dm) 10 ml PO Q6 PRN PRN Reason: Cough Insulin Detemir (Levemir) 12 units SC HS [facility] Last Admin: 11/25/16 21:15 Dose: 12 units Insulin Human Lispro (Humalog) 0 units [place] ACHS [facility] PRN Reason: Protocol Last Admin: 11/26/16 06:36 Dose: Not Given Lidocaine (Lidoderm) 1 ea TD DAILY [facility] Last Admin: 11/26/16 08:15 Dose: 1 ea Losartan Potassium (Cozaar) 50 mg PO DAILY [facility] Last Admin: 11/26/16 08:16 Dose: 50 mg Metformin HCl (Glucophage) 500 mg PO BID [facility] Last Admin: 11/26/16 08:16 Dose: 500 mg Nystatin (Nystatin Oral Susp) 5 ml PO TID [facility] Last Admin: 11/26/16 08:17 Dose: 5 ml Senna/Docusate Sodium (Senokot S 50 Mg-8.6 Mg) 1 tab PO BID [facility] Sitagliptin Phosphate (Januvia) 50 mg PO DAILY [facility] Last Admin: 11/26/16 08:16 Dose: 50 mg - Labs Labs: 11/25/16 06:10 11/25/16 06:10 - Constitutional Appears: Well - Head Exam Head Exam: ATRAUMATIC, NORMAL INSPECTION, NORMOCEPHALIC - Eye Exam Eye Exam: EOMI, Normal appearance, PERRL Pupil Exam: NORMAL ACCOMODATION, PERRL - ENT Exam ENT Exam: Mucous Membranes Moist, Normal Exam - Neck Exam Neck Exam: Full ROM, Normal Inspection. absent: Lymphadenopathy - Respiratory Exam Respiratory Exam: Clear to Ausculation Bilateral, NORMAL BREATHING PATTERN - Cardiovascular Exam Cardiovascular Exam: REGULAR RHYTHM, +S1, +S2. absent: Murmur - GI/Abdominal Exam GI & Abdominal Exam: Soft, Normal Bowel Sounds. absent: Tenderness - Rectal Exam Rectal Exam: NORMAL INSPECTION - Exam Exam: Circumcision, NORMAL INSPECTION External exam: NORMAL EXTERNAL EXAM Speculum exam: NORMAL SPECULUM EXAM Bimanual exam: NORMAL BIMANUAL EXAM - Extremities Exam Extremities Exam: Full ROM, Normal Capillary Refill, Normal Inspection. absent : Joint Swelling, Pedal Edema - Back Exam Back Exam: NORMAL INSPECTION - Neurological Exam Neurological Exam: Abnormal Gait, Alert, Awake, CN II-XII Intact - Psychiatric Exam Psychiatric exam: Anxious, Normal Mood - Skin Skin Exam: Dry, Intact, Normal Color, Warm Assessment and Plan (1) Ischemic stroke Assessment & Plan: H/O Old stroke Status: Acute (2) Contusion Status: Acute (3) Slurring of speech Status: Acute (4) Toothache Status: Acute (5) Diabetes mellitus Status: Chronic (6) Hyperlipidemia Status: Chronic (7) Hypertension Status: Chronic Continue Current care Improving Status: Acute
--- NOTE | 2016-11-26 15:12 | CP.PCM.PN ---
Subjective - Date & Time of Evaluation Date of Evaluation: 11/26/16 Time of Evaluation: 14:00 - Subjective Subjective: no acute complaints at present Objective - Vital Signs/Intake and Output Vital Signs (last 24 hours): Temp Pulse Resp BP Pulse Ox 97.8 F 70 20 134/71 97 11/26/16 08:18 11/26/16 08:18 11/26/16 08:18 11/26/16 08:18 11/25/16 20:15 - Medications Medications: Current Medications Albuterol/Ipratropium (Duoneb 3 Mg/0.5 Mg (3 Ml) Ud) 3 ml INH RQ6 PRN PRN Reason: Shortness of Breath Last Admin: 11/24/16 21:44 Dose: 3 ml Amlodipine Besylate (Norvasc) 10 mg PO DAILY [facility] Last Admin: 11/26/16 08:17 Dose: 10 mg Aspirin (Ecotrin) 81 mg PO DAILY [facility] Last Admin: 11/26/16 08:16 Dose: 81 mg Atorvastatin Calcium (Lipitor) 40 mg PO HS [facility] Last Admin: 11/25/16 21:15 Dose: 40 mg Bisacodyl (Dulcolax) 10 mg [place] DAILY PRN PRN Reason: Constipation Last Admin: 11/25/16 17:09 Dose: 10 mg Clopidogrel Bisulfate (Plavix) 75 mg PO DAILY [facility] Last Admin: 11/26/16 08:17 Dose: 75 mg Enoxaparin Sodium (Lovenox) 40 mg SC DAILY [facility] PRN Reason: Protocol Last Admin: 11/26/16 08:18 Dose: 40 mg Famotidine (Pepcid) 20 mg PO BID [facility] Last Admin: 11/26/16 08:16 Dose: 20 mg Guaifenesin/Dextromethorphan (Robitussin Dm) 10 ml PO Q6 PRN PRN Reason: Cough Insulin Detemir (Levemir) 12 units SC HS [facility] Last Admin: 11/25/16 21:15 Dose: 12 units Insulin Human Lispro (Humalog) 0 units SC ACHS [facility] PRN Reason: Protocol Last Admin: 11/26/16 11:54 Dose: Not Given Lidocaine (Lidoderm) 1 ea TD DAILY [facility] Last Admin: 11/26/16 08:15 Dose: 1 ea Losartan Potassium (Cozaar) 50 mg PO DAILY [facility] Last Admin: 11/26/16 08:16 Dose: 50 mg Metformin HCl (Glucophage) 500 mg PO BID [facility] Last Admin: 11/26/16 08:16 Dose: 500 mg Nystatin (Nystatin Oral Susp) 5 ml PO TID [facility] Last Admin: 11/26/16 13:11 Dose: 5 ml Senna/Docusate Sodium (Senokot S 50 Mg-8.6 Mg) 1 tab PO BID [facility] Sitagliptin Phosphate (Januvia) 50 mg PO DAILY [facility] Last Admin: 11/26/16 08:16 Dose: 50 mg - Labs Labs: 11/25/16 06:10 11/25/16 06:10 - Head Exam Head Exam: ATRAUMATIC, NORMAL INSPECTION, NORMOCEPHALIC - Eye Exam Eye Exam: EOMI, Normal appearance, PERRL Pupil Exam: NORMAL ACCOMODATION - ENT Exam ENT Exam: Mucous Membranes Moist, Normal Exam - Neck Exam Neck Exam: Normal Inspection - Respiratory Exam Respiratory Exam: NORMAL BREATHING PATTERN - Cardiovascular Exam Cardiovascular Exam: REGULAR RHYTHM - GI/Abdominal Exam GI & Abdominal Exam: Normal Bowel Sounds - Rectal Exam Rectal Exam: NORMAL INSPECTION - Exam External exam: NORMAL EXTERNAL EXAM - Extremities Exam Extremities Exam: Normal Capillary Refill, Normal Inspection - Neurological Exam Neurological Exam: Alert, Awake Neuro motor strength exam: Left Upper Extremity: 3, Right Upper Extremity: 3, Left Lower Extremity: 3, Right Lower Extremity: 3 - Psychiatric Exam Psychiatric exam: Normal Affect, Normal Mood - Skin Skin Exam: Dry, Intact Assessment and Plan (1) CVA, old, dysarthria Assessment & Plan: plan for physical, occupational, rec therapy patient may go outside Status: Acute (2) Contusion Status: Acute (3) Ischemic stroke Status: Acute (4) Slurring of speech Status: Acute (5) Toothache Status: Acute (6) Diabetes mellitus Status: Chronic (7) Hyperlipidemia Status: Chronic (8) Hypertension Status: Chronic
--- NOTE | 2016-11-26 15:21 | CP.PCM.PN ---
Subjective - Date & Time of Evaluation Date of Evaluation: 11/25/16 Time of Evaluation: 21:00 - Subjective Subjective: no acute complaints at present Objective - Vital Signs/Intake and Output Vital Signs (last 24 hours): Temp Pulse Resp BP Pulse Ox 97.8 F 70 20 134/71 97 11/26/16 08:18 11/26/16 08:18 11/26/16 08:18 11/26/16 08:18 11/25/16 20:15 - Medications Medications: Current Medications Albuterol/Ipratropium (Duoneb 3 Mg/0.5 Mg (3 Ml) Ud) 3 ml INH RQ6 PRN PRN Reason: Shortness of Breath Last Admin: 11/24/16 21:44 Dose: 3 ml Amlodipine Besylate (Norvasc) 10 mg PO DAILY [facility] Last Admin: 11/26/16 08:17 Dose: 10 mg Aspirin (Ecotrin) 81 mg PO DAILY [facility] Last Admin: 11/26/16 08:16 Dose: 81 mg Atorvastatin Calcium (Lipitor) 40 mg PO HS [facility] Last Admin: 11/25/16 21:15 Dose: 40 mg Bisacodyl (Dulcolax) 10 mg [place] DAILY PRN PRN Reason: Constipation Last Admin: 11/25/16 17:09 Dose: 10 mg Clopidogrel Bisulfate (Plavix) 75 mg PO DAILY [facility] Last Admin: 11/26/16 08:17 Dose: 75 mg Enoxaparin Sodium (Lovenox) 40 mg [place] DAILY [facility] PRN Reason: Protocol Last Admin: 11/26/16 08:18 Dose: 40 mg Famotidine (Pepcid) 20 mg PO BID [facility] Last Admin: 11/26/16 08:16 Dose: 20 mg Guaifenesin/Dextromethorphan (Robitussin Dm) 10 ml PO Q6 PRN PRN Reason: Cough Insulin Detemir (Levemir) 12 units SC HS [facility] Last Admin: 11/25/16 21:15 Dose: 12 units Insulin Human Lispro (Humalog) 0 units SC ACHS [facility] PRN Reason: Protocol Last Admin: 11/26/16 11:54 Dose: Not Given Lidocaine (Lidoderm) 1 ea TD DAILY [facility] Last Admin: 11/26/16 08:15 Dose: 1 ea Losartan Potassium (Cozaar) 50 mg PO DAILY [facility] Last Admin: 11/26/16 08:16 Dose: 50 mg Metformin HCl (Glucophage) 500 mg PO BID [facility] Last Admin: 11/26/16 08:16 Dose: 500 mg Nystatin (Nystatin Oral Susp) 5 ml PO TID [facility] Last Admin: 11/26/16 13:11 Dose: 5 ml Senna/Docusate Sodium (Senokot S 50 Mg-8.6 Mg) 1 tab PO BID [facility] Sitagliptin Phosphate (Januvia) 50 mg PO DAILY [facility] Last Admin: 11/26/16 08:16 Dose: 50 mg - Labs Labs: 11/25/16 06:10 11/25/16 06:10 - Head Exam Head Exam: ATRAUMATIC, NORMAL INSPECTION, NORMOCEPHALIC - Eye Exam Eye Exam: EOMI, Normal appearance, PERRL Pupil Exam: NORMAL ACCOMODATION - ENT Exam ENT Exam: Mucous Membranes Moist, Normal Exam - Neck Exam Neck Exam: Normal Inspection - Respiratory Exam Respiratory Exam: NORMAL BREATHING PATTERN - Cardiovascular Exam Cardiovascular Exam: REGULAR RHYTHM - GI/Abdominal Exam GI & Abdominal Exam: Soft - Rectal Exam Rectal Exam: NORMAL INSPECTION - Exam External exam: NORMAL EXTERNAL EXAM - Extremities Exam Extremities Exam: Normal Capillary Refill, Normal Inspection - Back Exam Back Exam: NORMAL INSPECTION - Neurological Exam Neurological Exam: Alert, Awake Neuro motor strength exam: Left Upper Extremity: 3, Right Upper Extremity: 3, Left Lower Extremity: 3, Right Lower Extremity: 3 - Psychiatric Exam Psychiatric exam: Normal Affect, Normal Mood - Skin Skin Exam: Dry, Intact Assessment and Plan (1) CVA, old, dysarthria Assessment & Plan: plan for range of motion, strenghtening, transfers and gait training monitor skin, bowel, bladder Status: Acute (2) Contusion Status: Acute (3) Ischemic stroke Status: Acute (4) Slurring of speech Status: Acute (5) Toothache Status: Acute (6) Diabetes mellitus Status: Chronic (7) Hyperlipidemia Status: Chronic (8) Hypertension Status: Chronic
[2016-11-26] MEDS: Docusate-Senna 50 mg-8.6 mg Tab PO SCH (17:21)
[2016-11-26] MEDS: Insulin Detemir 100 Units/ml Inj SC SCH (22:07)
[2016-11-27] MEDS: Insulin Lispro (humaLOG) 100 Units/ml Inj SC SCH ×4 (07:30→21:19)
[2016-11-27] MEDS: Lidocaine 5% Patch TD SCH (08:48)
[2016-11-27] MEDS: Enoxaparin 40 mg Syringe SC SCH (08:49)
[2016-11-27] MEDS: Nystatin 100,000 Units/ml Oral Susp 5 ml UD PO SCH ×3 (08:50→17:32)
[2016-11-27] MEDS: Docusate-Senna 50 mg-8.6 mg Tab PO SCH ×2 (08:50→17:33)
--- NOTE | 2016-11-27 16:08 | PSY.TMCNF ---
Nursing - Vital Signs Vital Signs (Last 8 hours): Vital Signs 11/27/16 11/27/16 11/27/16 08:27 08:47 08:49 Temperature 97.6 F Pulse Rate 66 66 66 Respiratory 19 Rate Blood Pressure 148/64 148/64 148/64 O2 Sat by Pulse 97 Oximetry 11/27/16 09:00 Temperature 97.6 F Pulse Rate 66 Respiratory 19 Rate Blood Pressure 148/64 O2 Sat by Pulse Oximetry Pain: 4 - Precautions: Precautions: Fall Prevention - Medications/Other Issues Comment: Safety - Consults Comment: Dr. Bhatti - Toileting Toileting: Minimal Assistance - Bladder Management Bladder Pattern: Incontinent (at times) Voiding Method: Toilet, Bedpan, Diaper Bladder Management: Minimal Assistance Frequency of Accidents: 0 - Bowel Management Bowel Pattern: Constipated Bowel Management: Dependent Frequency of Accidents: 0 - Transfers Transfers: Minimal Assistance - ADL's ADL's: Maximal Assistance - Pain Management Comments: lidoderm patch to upper back - Patient/Family Teaching Comments: CARE POST CVA AND SAFETY PRECAUTIONS - Goals/Time Frame Comments: per IPOC - Provider Provider: ronald baker Physical Therapy - Bed Mobility Bed Mobility: Verbal Cues, Contact Guard - Transfers Sit to Stand: Supervision, Verbal Cues - Ambulation Level of Assistance: Supervision, Verbal Cues Distance (ft.): 200 Assistive Devices: Single point cane - Stair Negotiation Stairs: Level of Assistance: Supervision Number of Stairs: 11 Stairs: Assistive Devices: Right Handrail, Single point cane - Standing Balance Static Stand: Supervision Dynamic Stand: Contact Guard Assist, Minimal Assistance - Pain Management Techniques: Medication - Insight/Carryover Insight/Carryover: Fair - Patient/Family Education Comment: safety, ADL compensatory strateiges, fall prevention - Assessment/Plan Assessment: Pt continues to be limited by visual and cognitive deficits limiting carryvoer with compensation strategies. Pt will require 24 hour assistance in home environment, will require hands on training - Goals Timeframe: 1 week Goals: ADLs at S. ADL txfers at S - Provider Therapist: Nela Garcia PT, DPT License Number: [id number] Occupational Therapy - Arousal/Attention/Orientation Level of Consciousness: Awake, Alert Patient Orientation: Person - ADL/IADL Self Feeding: Supervision, Set-up Help Grooming: Supervision, Verbal Cues, Set-up Help Bathing-Upper Extremity: Supervision, Verbal Cues, Set-up Help Bathing-Lower Extremity: Minimal Assistance Dressing-Upper Extremity: Supervision, Verbal Cues, Set-up Help Dressing-Lower Extremity: Minimal Assistance - Sitting Balance Static Sitting: Independent without upper extremity support Dynamic Sitting: Reaches across midline, Requires supervision - Transfers Wheelchair to Bed Transfers: Supervision, Verbal Cues, Set-up Help Toilet Transfers: Supervision, Verbal Cues, Set-up Help, Contact Guard - Wheelchair Management Level of Assistance: Not Applicable - Upper Extremity Status Right Upper Extremity Comment: ROM WFL, impaired strength and dexterity Left Upper Extremity Comment: ROM WFL - Pain Alleviating Techniques: Medication - Insight/Carryover Insight/Carryover: Fair - Patient/Family Education Comment: safety, ADL compensatory strateiges, fall prevention - Assessment/Plan Assessment: Pt continues to be limited by visual and cognitive deficits limiting carryvoer with compensation strategies. Pt will require 24 hour assistance in home environment, will require hands on training - Goals Timeframe: 1 week Goals: ADLs at S. ADL txfers at S - Provider Therapist: Renuka Johnston License Number: [id number] Speech Therapy - Consult Information Patient on Program: Yes Medical Diagnosis: acute ischemic CVA Treatment Diagnosis: cognitive-linguistic disorder, dysarthria, dysphagia - Assessment Problem Solving Impairment: Mild Memory Impairment: Mild Speech/Articulation Impairment: Mild Dysphagia/Swallowing Impairment: Moderate Comment: diet advanced to finely chopped/nectar - Plan Assessment: Pt continues to be limited by visual and cognitive deficits limiting carryvoer with compensation strategies. Pt will require 24 hour assistance in home environment, will require hands on training - Provider Therapist: Ivett Rangel License Number: [id number] Recreational Therapy - Participation Participation: Participates in Individual and/or Group Sessions, Monitors His/ Her Own Leisure Time - Attendance Attendance: Daily - Activities Leisure Activities: Television - Socialization Level of Socialization: Initiates/interacts freely with care givers and peer, Minimal initiation of interaction to request basic needs, Minimal or no response - Diversional Time Diversional Time: television - Assessment Assessment/Plan: Pt continues to be limited by visual and cognitive deficits limiting carryvoer with compensation strategies. Pt will require 24 hour assistance in home environment, will require hands on training - Provider Therapist: Kriss Prakash, DIANETIC COUNSELOR #[id number] Nutrition - Current Diet Current Diet/ Supplement/ Feedings: Moderate consistent CHO 2 gram Na Mech altered(finely chopped) nectar thick liquids. - Appetite Percent Meal Consumed: 25-49% - Comments Comments: CARE POST CVA AND SAFETY PRECAUTIONS - Assessment/Goals/Time Frame Assessment/Goals/Time Frame: Safety - Provider Provider: Lilliana Hilliard RD Case Management - Psychosocial Assessment Support Systems: Patient lives with granddaughter who assists patient at home. Patient's daughter Denise is also supportive and involved in care- [phone] Psychological Interventions/Needs: Patient is alert and oriented x3 and able to verbalize needs. Patient is primarily Azeri speaking, discussion held via certified Azeri speaking tower truck driver Ivett Henderson Discharge Concerns: Patient with R sided weakness, requiring min A for functional mobility currently. Patient with 5 steps to negotiate at home Patient/Family Meeting: CM met with patient and rehab team. Intervention/Goal/Outcome:: 1. Goal: Supervision overall. 2. Plan: Home with VNS. 3. caregiver training. 4. continued emotional support. 5. DME needs. 6. f/ u appts. 7. continued stay auth: 11/24 - Discharge Plan Discharge Plan: Home with services - Provider Provider: DILCIA Claire, FOLDER MACHINE ADJUSTER License Number: [id number] Rehabilitation Plan - Discharge Plan Estimated Date of Discharge: 11/28/16 Discharge to: Home
--- NOTE | 2016-11-27 16:44 | CP.PCM.PN ---
Subjective - Date & Time of Evaluation Date of Evaluation: 11/27/16 Time of Evaluation: 16:43 - Subjective Subjective: Patient seen in room with yarn inspector denies pain doing well is set for d/c home tomorrow family will meet her will discuss diet for dysphagia to make sure it is safe speech is aware of this need Objective - Vital Signs/Intake and Output Vital Signs (last 24 hours): Temp Pulse Resp BP Pulse Ox 97.6 F 66 19 148/64 97 11/27/16 09:00 11/27/16 09:00 11/27/16 09:00 11/27/16 09:00 11/27/16 08:27 - Medications Medications: Current Medications Albuterol/Ipratropium (Duoneb 3 Mg/0.5 Mg (3 Ml) Ud) 3 ml INH RQ6 PRN PRN Reason: Shortness of Breath Last Admin: 11/24/16 21:44 Dose: 3 ml Amlodipine Besylate (Norvasc) 10 mg PO DAILY [facility] Last Admin: 11/27/16 08:49 Dose: 10 mg Aspirin (Ecotrin) 81 mg PO DAILY [facility] Last Admin: 11/27/16 08:48 Dose: 81 mg Atorvastatin Calcium (Lipitor) 40 mg PO HS [facility] Last Admin: 11/26/16 22:06 Dose: 40 mg Bisacodyl (Dulcolax) 10 mg [place] DAILY PRN PRN Reason: Constipation Last Admin: 11/25/16 17:09 Dose: 10 mg Clopidogrel Bisulfate (Plavix) 75 mg PO DAILY [facility] Last Admin: 11/27/16 08:50 Dose: 75 mg Enoxaparin Sodium (Lovenox) 40 mg SC DAILY [facility] PRN Reason: Protocol Last Admin: 11/27/16 08:49 Dose: 40 mg Famotidine (Pepcid) 20 mg PO BID [facility] Last Admin: 11/27/16 08:50 Dose: 20 mg Guaifenesin/Dextromethorphan (Robitussin Dm) 10 ml PO Q6 PRN PRN Reason: Cough Insulin Detemir (Levemir) 12 units SC HS [facility] Last Admin: 11/26/16 22:07 Dose: 12 units Insulin Human Lispro (Humalog) 0 units SC ACHS [facility] PRN Reason: Protocol Last Admin: 11/27/16 12:06 Dose: Not Given Lidocaine (Lidoderm) 1 ea TD DAILY [facility] Last Admin: 11/27/16 08:48 Dose: 1 ea Losartan Potassium (Cozaar) 50 mg PO DAILY [facility] Last Admin: 11/27/16 08:47 Dose: 50 mg Metformin HCl (Glucophage) 500 mg PO BID [facility] Last Admin: 11/27/16 08:48 Dose: 500 mg Nystatin (Nystatin Oral Susp) 5 ml PO TID [facility] Last Admin: 11/27/16 12:12 Dose: 5 ml Senna/Docusate Sodium (Senokot S 50 Mg-8.6 Mg) 1 tab PO BID [facility] Last Admin: 11/27/16 08:50 Dose: 1 tab Sitagliptin Phosphate (Januvia) 50 mg PO DAILY [facility] Last Admin: 11/27/16 08:48 Dose: 50 mg - Labs Labs: 11/25/16 06:10 11/25/16 06:10
--- NOTE | 2016-11-27 19:50 | CP.PCM.PN ---
Subjective - Date & Time of Evaluation Date of Evaluation: 11/27/16 Time of Evaluation: 19:50 Objective - Vital Signs/Intake and Output Vital Signs (last 24 hours): Temp Pulse Resp BP Pulse Ox 97.6 F 66 19 148/64 97 11/27/16 09:00 11/27/16 09:00 11/27/16 09:00 11/27/16 09:00 11/27/16 08:27 - Medications Medications: Current Medications Albuterol/Ipratropium (Duoneb 3 Mg/0.5 Mg (3 Ml) Ud) 3 ml INH RQ6 PRN PRN Reason: Shortness of Breath Last Admin: 11/24/16 21:44 Dose: 3 ml Amlodipine Besylate (Norvasc) 10 mg PO DAILY [facility] Last Admin: 11/27/16 08:49 Dose: 10 mg Aspirin (Ecotrin) 81 mg PO DAILY [facility] Last Admin: 11/27/16 08:48 Dose: 81 mg Atorvastatin Calcium (Lipitor) 40 mg PO HS [facility] Last Admin: 11/26/16 22:06 Dose: 40 mg Bisacodyl (Dulcolax) 10 mg [place] DAILY PRN PRN Reason: Constipation Last Admin: 11/25/16 17:09 Dose: 10 mg Clopidogrel Bisulfate (Plavix) 75 mg PO DAILY [facility] Last Admin: 11/27/16 08:50 Dose: 75 mg Enoxaparin Sodium (Lovenox) 40 mg [place] DAILY [facility] PRN Reason: Protocol Last Admin: 11/27/16 08:49 Dose: 40 mg Famotidine (Pepcid) 20 mg PO BID [facility] Last Admin: 11/27/16 17:32 Dose: 20 mg Guaifenesin/Dextromethorphan (Robitussin Dm) 10 ml PO Q6 PRN PRN Reason: Cough Insulin Detemir (Levemir) 12 units SC HS [facility] Last Admin: 11/26/16 22:07 Dose: 12 units Insulin Human Lispro (Humalog) 0 units SC ACHS [facility] PRN Reason: Protocol Last Admin: 11/27/16 17:32 Dose: 1 units Lidocaine (Lidoderm) 1 ea TD DAILY [facility] Last Admin: 11/27/16 08:48 Dose: 1 ea Losartan Potassium (Cozaar) 50 mg PO DAILY [facility] Last Admin: 11/27/16 08:47 Dose: 50 mg Metformin HCl (Glucophage) 500 mg PO BID [facility] Last Admin: 11/27/16 17:32 Dose: 500 mg Nystatin (Nystatin Oral Susp) 5 ml PO TID [facility] Last Admin: 11/27/16 17:32 Dose: 5 ml Senna/Docusate Sodium (Senokot S 50 Mg-8.6 Mg) 1 tab PO BID [facility] Last Admin: 11/27/16 17:33 Dose: 1 tab Sitagliptin Phosphate (Januvia) 50 mg PO DAILY [facility] Last Admin: 11/27/16 08:48 Dose: 50 mg - Labs Labs: 11/25/16 06:10 11/25/16 06:10 Assessment and Plan (1) Ischemic stroke Status: Acute
[2016-11-27] MEDS: Insulin Detemir 100 Units/ml Inj SC SCH (21:18)
[2016-11-28] MEDS: Insulin Lispro (humaLOG) 100 Units/ml Inj SC SCH ×2 (06:53→12:15)
[2016-11-28] MEDS: Lidocaine 5% Patch TD SCH (08:08)
[2016-11-28 08:09] VITALS: BP 146/76; PULSE 68; RESP 19; TEMP 97.3; O2SAT 97
[2016-11-28] MEDS: Enoxaparin 40 mg Syringe SC SCH (08:09)
[2016-11-28] MEDS: Docusate-Senna 50 mg-8.6 mg Tab PO SCH (08:10)
[2016-11-28] MEDS: Nystatin 100,000 Units/ml Oral Susp 5 ml UD PO SCH ×2 (08:10→12:16)
--- NOTE | 2016-11-28 23:43 | CP.PCM.DIS ---
Provider - Provider Date of Admission: 11/18/16 21:54 Attending physician: Carie Ye MD Time Spent in preparation of Discharge (in minutes): 25 Diagnosis - Discharge Diagnosis (1) Ischemic stroke Status: Acute Priority: High Hospital Course - Lab Results Lab Results: Most Recent Lab Values WBC 11.7 K/uL (4.8-10.8) H 11/25/16 06:10 RBC 4.35 Mil/uL (3.80-5.20) 11/25/16 06:10 Hgb 11.4 g/dL (12.0-16.0) L 11/25/16 06:10 Hct 35.6 % (34.0-47.0) 11/25/16 06:10 MCV 81.8 fl (81.0-99.0) 11/25/16 06:10 MCH 26.3 pg (27.0-31.0) L 11/25/16 06:10 MCHC 32.2 g/dL (33.0-37.0) L 11/25/16 06:10 RDW 14.2 % (11.5-14.5) 11/25/16 06:10 Plt Count 380 K/uL (130-400) 11/25/16 06:10 Sodium 142 mmol/l (132-148) 11/25/16 06:10 Potassium 4.8 MMOL/L (3.6-5.0) 11/25/16 06:10 Chloride 104 mmol/L (98-107) 11/25/16 06:10 Carbon Dioxide 27 mmol/L (22-30) 11/25/16 06:10 Anion Gap 15 (10-20) 11/25/16 06:10 BUN 20 mg/dl (7-17) H 11/25/16 06:10 Creatinine 1.2 mg/dL (0.7-1.2) 11/25/16 06:10 Est GFR ( Amer) 54 11/25/16 06:10 Est GFR (Non-Af Amer) 45 11/25/16 06:10 POC Glucose (mg/dL) 90 mg/dL (65-110) 11/28/16 11:19 Random Glucose 78 mg/dL (65-105) 11/25/16 06:10 Calcium 9.5 mg/dL (8.4-10.2) 11/25/16 06:10 Discharge Exam - Head Exam Head Exam: ATRAUMATIC, NORMAL INSPECTION, NORMOCEPHALIC Discharge Plan - Follow Up Plan Condition: GOOD Disposition: HOME/ ROUTINE Instructions: Hypertension (DC), Hypertension (GEN)
== END 2016-11-28 14:58 | disposition home health service (06) | DRG 57 ==
PROVIDERS: ADMIT Internal Medicine; ATTEND Internal Medicine
PROC: F07M6FZ Therapeutic Exercise Treatment of Musculoskeletal System - Whole Body using Assistive, Adaptive, Supportive or Protective Equipment (ICD-10-PCS; principal; 2016-11-19)
PROC: F08Z4FZ Home Management Treatment using Assistive, Adaptive, Supportive or Protective Equipment (ICD-10-PCS; 2016-11-19)
PROC: F06Z8ZZ Motor Speech Treatment (ICD-10-PCS; 2016-11-20)
DX: I69.951 Hemiplegia and hemiparesis following unspecified cerebrovascular disease affecting right dominant side (principal); I69.928 Other speech and language deficits following unspecified cerebrovascular disease; I10 Essential (primary) hypertension; E11.9 Type 2 diabetes mellitus without complications; I69.992 Facial weakness following unspecified cerebrovascular disease; I69.922 Dysarthria following unspecified cerebrovascular disease; E78.00 Pure hypercholesterolemia, unspecified; E78.5 Hyperlipidemia, unspecified; Z86.73 Personal history of transient ischemic attack (TIA), and cerebral infarction without residual deficits; Z97.0 Presence of artificial eye; K59.00 Constipation, unspecified